=== PATIENT | female | born 1990 | race Hispanic/Latino ===

== ENCOUNTER 2019-12-15 19:08 | Inpatient (IN) | payer OTHER, MEDICAID ==
[~2019-12-15] VITALS: Ht 149.9 cm; Wt 84.8 kg
[2019-12-15 20:00] VITALS: BP 109/61
[2019-12-15] MEDS ORDERED: OXYTOCIN-LR 20 UNITS/1000 ML 1,000 ML IV SCH (20:00)
[2019-12-15 20:01] LABS: APPEARANCE,URINE Clear (CLEAR); BILIRUBIN,URINE Negative (NEGATIVE); COLOR,URINE Yellow (YELLOW); GLUCOSE, URINE (UA) Negative (NEGATIVE); KETONES,URINE Trace mg/dL (NEGATIVE); LEUKOCYTE ESTERASE ,URINE Trace (NEGATIVE); NITRATE,URINE Negative (NEGATIVE); OCCULT BLOOD,URINE Nonhemolyzed Trace (NEGATIVE); PROTEIN,URINE Trace mg/dL (NEGATIVE); UROBILINOGEN,URINE 0.2 mg/dL (0.2-1.0)
[2019-12-15 20:29] LABS: BACTERIA,URINE Few /HPF (None Seen); CALCIUM OXALATE CRYSTALS,UR Moderate /LPF (None Seen); MUCUS,URINE Few LPF (None Seen); SQUAMOUS EPITHELIAL CELL,UR Moderate /HPF (0-2)
[2019-12-15 20:33] LABS: MEAN CORPUSCULAR HEMOGLOBIN 24.1 pg (27.0-33.0); MEAN CORPUSCULAR HGB CONC 30.9 g/dL (32.0-36.0); MEAN CORPUSCULAR VOLUME 78.2 fL (79-99); PLATELET COUNT (AUTO) 245 K/uL (130-400); RED BLOOD CELL COUNT(AUTO) 4.35 MIL/uL (4.00-5.50); RED CELL DISTRIBUTION WIDTH 15.4 % (11.0-15.5); WHITE BLOOD COUNT (AUTO) 8.1 K/uL (4.8-10.8)
[2019-12-15] MEDS: LACTATED RINGERS 1000ML 1,000 ML IV PRN (22:23)
[2019-12-16] MEDS: LACTATED RINGERS 1000ML 1,000 ML IV PRN (03:06)
[2019-12-16] MEDS ORDERED: OXYTOCIN 10 USP UNITS/ML 20 UNIT in LACTATED RINGERS 1000ML 1,000 ML IV SCH (05:00)
[2019-12-16] MEDS ORDERED: MEPERIDINE HCL/PF 25 MG/0.5 ML AMPUL IVP SCH (07:45)
[2019-12-16] MEDS ORDERED: ROPIVACAINE 0.2% 100ML VIAL 100 ML EP SCH (07:45)
[2019-12-16] MEDS ORDERED: NALOXONE HCL 0.4 MG/1 ML ML IV PRN (07:45)
[2019-12-16] MEDS ORDERED: OXYTOCIN-LR 20 UNITS/1000 ML 1,000 ML IV SCH (07:45)
[2019-12-16] MEDS ORDERED: LIDOCAINE HCL 1% 20 ML VIAL INJ PRN (07:45)
[2019-12-16] MEDS ORDERED: EPHEDRINE SULFATE 50 MG/ML AMPULE IVP PRN (07:45)
[2019-12-16] MEDS ORDERED: LACTATED RINGERS 500 ML 500 ML IV PRN (07:45)
[2019-12-16] MEDS ORDERED: PROMETHAZINE HCL 25 MG/ML 1ML AMPULE IM SCH (07:45)
[2019-12-16] MEDS ORDERED: MEPERIDINE-PF 100 MG/ML SYG ONE (08:32)
[2019-12-16] MEDS ORDERED: MEPERIDINE-PF 100 MG/ML SYG IVP ONE (08:45)
[2019-12-16] MEDS ORDERED: DIPH,PERTUSS(ACELL),TET VAC/PF 0.5 ML VIAL IM PRN (12:00)
[2019-12-16] MEDS ORDERED: ACETAMINOPHEN 325 MG TAB PO PRN (12:00)
[2019-12-16] MEDS ORDERED: MEASLES/MUMPS/RUBELLA VACCINE, LIVE 0.5 ML/VIAL SQ PRN (12:00)
[2019-12-16] MEDS ORDERED: WITCH HAZEL 1 PAD TP PRN (12:00)
[2019-12-16] MEDS ORDERED: ACETAMINOPHEN-CODEINE 300/30MG TAB PO PRN (12:00)
[2019-12-16] MEDS ORDERED: LANOLIN 30GM OINTMENT TP PRN (12:00)
[2019-12-16] MEDS ORDERED: BENZOCAINE/LANOLIN/ALOE VERA 60 ML AEROSOL TP PRN (12:00)
[2019-12-16 15:29] VITALS: BP 115/61
[2019-12-16] MEDS ORDERED: PREN-154 PO (16:09)
[2019-12-16] MEDS: IBUPROFEN 600 MG TABLET PO PRN (16:20)
[2019-12-16 20:00] VITALS: BP 105/69
[2019-12-16] MEDS: DOCUSATE SODIUM 100 MG CAP PO SCH (21:15)
[2019-12-17] VITALS: BP 109/63
[2019-12-17] MEDS: IBUPROFEN 600 MG TABLET PO PRN ×2 (02:35→09:05)
[2019-12-17 04:00] VITALS: BP 117/72
[2019-12-17 05:33] LABS: MEAN CORPUSCULAR HEMOGLOBIN 24.3 pg (27.0-33.0); MEAN CORPUSCULAR HGB CONC 30.7 g/dL (32.0-36.0); MEAN CORPUSCULAR VOLUME 79.1 fL (79-99); PLATELET COUNT (AUTO) 187 K/uL (130-400); RED BLOOD CELL COUNT(AUTO) 3.54 MIL/uL (4.00-5.50); RED CELL DISTRIBUTION WIDTH 15.7 % (11.0-15.5); WHITE BLOOD COUNT (AUTO) 10.1 K/uL (4.8-10.8)
[2019-12-17 07:19] VITALS: BP 109/64
[2019-12-17 08:10] LABS: HEPATITIS Bs ANTIGEN SCREEN P Negative (Negative)
[2019-12-17] MEDS: DOCUSATE SODIUM 100 MG CAP PO SCH (09:05)
[2019-12-17 11:49] VITALS: BP 117/70
--- NOTE | 2019-12-17 14:36 | NUR ---
HX OF POST DEPRESSION SW met with pt whom is to Tyrel Woody [phone] and they have 2 sons 5yro and NB Sancho Woody. 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 Pt has [employer], Medicaid, and WIC assistance. Pt reports couple has basic items for NB including car seat and Dr Jones will follow baby after dc. Pt states will be home for 2 weeks and she will have her mother and mother in law to assist as needed as well. Pt reports no hx of abuse, substance abuse, domestic violence, legal or CPS issues. Pt denies any mental health dx but reports she had post depression after of oldest son. Pt states she experienced crying, feeling overwhelmed and not in control of baby's care or her home because she had lots of family in home after . Pt states that it lasted about 2 weeks, and she noticed that when everyone was gone, she did not feel the same way. Pt was appreciative of the help, but felt she was not allowed to do things in her way. Pt states she and have a plan in place for this recovery and she hopes it is much better and less overwhelming. Encouraged pt to contact OB or PCP is she notices s/s of post depression so that she can get help. Pt denies need for referral or intervention. Addendum: 12/17/19 at 1452 by MINE OCASIO SS Amended: Links added.
[2019-12-17 16:11] VITALS: BP 124/72
--- NOTE | 2019-12-17 18:10 | NUR ---
PATIENT LEFT UNIT VIA WHEELCHAIR WITH BABY IN HAND. PERSONAL VEHICLE USED FOR TRANSPORTATION. BABY SECURE IN CARSEAT. NO COMPLAINTS OR CONCERNS ADDRESSED FROM PATIENT ON DISCHARGE.
== END 2019-12-17 18:10 | disposition home or self-care (01) | DRG 807 ==
LOC: LDH 19:08 → WSH 12-16 15:25 → EDSTATUS 12-19 19:01
PROVIDERS: ADMIT Obstetrics & Gynecology; ATTEND Obstetrics & Gynecology
PROC: 10E0XZZ Delivery of Products of Conception, External Approach (ICD-10-PCS; principal; 2019-12-16)
PROC: 0UQMXZZ Repair Vulva, External Approach (ICD-10-PCS; 2019-12-16)
PROC: 10907ZC Drainage of Amniotic Fluid, Therapeutic from Products of Conception, Via Natural or Artificial Opening (ICD-10-PCS; 2019-12-16)
PROC: 3E033VJ Introduction of Other Hormone into Peripheral Vein, Percutaneous Approach (ICD-10-PCS; 2019-12-16)
PROC: 3E0R3BZ Introduction of Anesthetic Agent into Spinal Canal, Percutaneous Approach (ICD-10-PCS; 2019-12-16)
PROC: 00HU33Z Insertion of Infusion Device into Spinal Canal, Percutaneous Approach (ICD-10-PCS; 2019-12-16)
PROC: 3E0234Z Introduction of Serum, Toxoid and Vaccine into Muscle, Percutaneous Approach (ICD-10-PCS; 2019-12-16)
PROC: 3E0134Z Introduction of Serum, Toxoid and Vaccine into Subcutaneous Tissue, Percutaneous Approach (ICD-10-PCS; 2019-12-16)
DX: O71.82 Other specified trauma to perineum and vulva (principal); Z37.0 Single live birth; Z3A.39 39 weeks gestation of pregnancy; Z23 Encounter for immunization
CPT/HCPCS: 36415; 81001; 85027; 86592; 86850; 86900; 86901; 87340; 90715; A4314; G0378; J2175; J2550; J2590; J2795; J7120